=== PATIENT | male | born 1960 | race Caucasian/White ===

== ENCOUNTER 2017-01-17 09:29 | Outpatient (CLI) | payer MEDICAID ==
[2017-01-17] MEDS ORDERED: VERSED ONE (09:51)
[2017-01-17 09:55] LABS: BASOPHILS # (AUTO) 0.1 X10^3/uL (0.0-0.1); BASOPHILS % (AUTO) 1.2 % (0.2-1.0); EOSINOPHILS # (AUTO) 0.9 x10^3/uL (0.0-0.2); EOSINOPHILS % (AUTO) 9.4 % (0.9-2.9); HEMATOCRIT 50.1 % (42.0-54.0); HEMOGLOBIN 16.6 g/dL (13.5-18.0); LYMPHOCYTES # (AUTO) 2.6 X10^3/uL (1.3-2.9); LYMPHOCYTES % (AUTO) 28.3 % (21.0-51.0); MEAN CORPUSCULAR HEMOGLOBIN 25.6 pg (27.0-34.0); MEAN CORPUSCULAR HGB CONC 33.2 g/dL (33.0-35.0); MEAN CORPUSCULAR VOLUME 77.3 fL (80.0-100.0); MEAN PLATELET VOLUME 8.4 fL (7.4-11.0); MONOCYTES % (AUTO) 10.7 % (0.0-13.0); NEUTROPHILS # (AUTO) 4.7 x10^3/uL (2.2-4.8); NEUTROPHILS % (AUTO) 50.4 % (42.0-75.0); PLATELET COUNT 230 X10^3/uL (150.0-450.0); RED BLOOD COUNT 6.49 X10^6/uL (4.7-6.0); RED CELL DISTRIBUTION WIDTH 18.7 % (11.6-16.5); WHITE BLOOD COUNT 9.2 X10^3/uL (3.6-10.0)
[2017-01-17 10:10] LABS: ALANINE AMINOTRANSFERASE 68 Units/L (12-78); ALBUMIN 3.4 g/dL (3.4-5.0); ALKALINE PHOSPHATASE 64 Units/L (46-116); ASPARTATE AMINO TRANSFERASE 39 Units/L (15-37); BLOOD UREA NITROGEN 12 mg/dL (7-18); CARBON DIOXIDE 29.9 mmol/L (21-32); CHLORIDE 107 mmol/L (98-107); CREATININE 1.28 mg/dL (0.70-1.30); GLUCOSE 86 mg/dL (65-99); SODIUM 139 mmol/L (136-145); TOTAL PROTEIN 7.5 g/dL (6.4-8.2); eGFR BLACK RACES > 60 (>60); eGFR NON BLACK RACES > 60 (>60)
[2017-01-17 10:11] LABS: PLATELET MORPHOLOGY COMMENT NORMAL (NORMAL)
[2017-01-17] MEDS ORDERED: XYLOCAINE 1 % (PLAIN) ONE (10:27)
[2017-01-17] MEDS ORDERED: NS 500 ML IV 500 ML IV ONE (10:28)
[2017-01-17] MEDS ORDERED: FENTANYL INJ 250 mcg ONE (11:07)
[2017-01-17 12:07] VITALS: BMI 32.3
--- NOTE | 2017-01-17 15:15 | CT ---
HISTORY: Chronic hepatitis-C Study: CT-guided random liver biopsy Comparison: February 05, 2014 Procedure: The risk, benefits, and alternatives were discussed. Informed consent was obtained. Time out was performed. CT guidance was utilized to localize the optimal percutaneous biopsy site along t he inferior lateral segment left hepatic lobe. The patient was prepped, draped, and anesthetized in the usual sterile fashion. Conscious sedation was provided per anesthesia. A 20 gauge Bard coaxial s ystem was advanced into the left hepatic lobe, and 4 core samples were obtained. The patient tolerat ed the procedure well without immediate postprocedure complication and was monitored for approximate ly 2 hr with serial vital checks prior to discharge. IMPRESSION: Technically successful CT-guided random liver biopsy. Reported By:
--- NOTE | 2017-01-17 15:21 | US ---
HISTORY: Chronic hepatitis-C Study: Hepatic ultrasound Comparison: CT performed the same day and February 05, 2014 Technique: Multiple grayscale and color Doppler images of the right upper quadrant were obtained. Findings: The liver demonstrates normal echotexture and size without a space-occupying lesion identified. No f ree fluid is identified. The visualized portions of the pancreas and IVC are normal. The gallbladder demonstrates good through transmission without echogenic shadowing stones or sludge. There is borde rline gallbladder wall thickening which is a nonspecific finding and could be related to the patient 's known hepatitis-C. In the setting of acute right upper quadrant pain, a nuclear medicine HIDA sca n could be performed. The right kidney demonstrates normal renal cortical thickness and echogenicity and is normal in size measuring 9.4 cm in greatest sagittal dimension without mass, hydronephrosis, or nephrolithiasis. IMPRESSION: Borderline nonspecific gallbladder wall thickening and otherwise unremarkable exam. Reported By:
[2017-01-17 16:07] VITALS: BP 137/63
== END 2017-01-17 16:05 | disposition home or self-care (01) | DRG 443 ==
LOC: RAD 09:29
PROVIDERS: ATTEND Internal Medicine Gastroenterology
PROC: 0FB23ZX Excision of Left Lobe Liver, Percutaneous Approach, Diagnostic (ICD-10-PCS; principal; 2017-01-17)
DX: B18.2 Chronic viral hepatitis C (principal)
CPT/HCPCS: 36415; 76705; 77012; 80053; 85025; 85610; 85730; A4222; J2001; J2250; J3010

== ENCOUNTER 2017-01-25 10:31 | Day surgery (SDC) | payer MEDICAID ==
[2017-01-25] MEDS ORDERED: NS 1000 ML 1,000 ML ONE (10:35)
[2017-01-25] MEDS ORDERED: DIPRIVAN VIAL 20 ML ONE ×2 (11:09→11:21)
[2017-01-25 14:46] VITALS: BP 117/79
== END 2017-01-25 12:00 | disposition home or self-care (01) ==
LOC: SURG1 10:31
PROVIDERS: ATTEND Internal Medicine Gastroenterology
PROC: 0DBM8ZX Excision of Descending Colon, Via Natural or Artificial Opening Endoscopic, Diagnostic (ICD-10-PCS; principal; 2017-01-25 12:00)
PROC: 0DBL8ZX Excision of Transverse Colon, Via Natural or Artificial Opening Endoscopic, Diagnostic (ICD-10-PCS; principal; 2017-01-25 12:00)
PROC: 0DBN8ZX Excision of Sigmoid Colon, Via Natural or Artificial Opening Endoscopic, Diagnostic (ICD-10-PCS; principal; 2017-01-25 12:00)
PROC: 0DJD8ZZ Inspection of Lower Intestinal Tract, Via Natural or Artificial Opening Endoscopic (ICD-10-PCS; principal; 2017-01-25 12:00)
DX: Z12.11 Encounter for screening for malignant neoplasm of colon (principal); D50.8 Other iron deficiency anemias; Z80.0 Family history of malignant neoplasm of digestive organs; R63.4 Abnormal weight loss; K63.5 Polyp of colon; K64.0 First degree hemorrhoids; R11.2 Nausea with vomiting, unspecified; R10.84 Generalized abdominal pain; D12.6 Benign neoplasm of colon, unspecified
CPT/HCPCS: A4217; J3490

== ENCOUNTER → 2017-03-06 | Outpatient (CLI) | payer MEDICAID ==
[2017-03-12 07:27] LABS: HCV VIRAL LOG 6.8 log IU
== END ==
LOC: LAB 14:07
PROVIDERS: ATTEND Internal Medicine Gastroenterology
DX: B18.2 Chronic viral hepatitis C (principal)
CPT/HCPCS: 36415; 87522

== ENCOUNTER → 2017-05-31 | Outpatient (CLI) | payer MEDICAID ==
[2017-05-31 09:12] LABS: BASOPHILS # (AUTO) 0.1 X10^3/uL (0.0-0.1); BASOPHILS % (AUTO) 0.9 % (0.2-1.0); EOSINOPHILS # (AUTO) 1.1 x10^3/uL (0.0-0.2); EOSINOPHILS % (AUTO) 9.9 % (0.9-2.9); HEMATOCRIT 49.9 % (42.0-54.0); LYMPHOCYTES # (AUTO) 3.9 X10^3/uL (1.3-2.9); LYMPHOCYTES % (AUTO) 36.7 % (21.0-51.0); MEAN CORPUSCULAR HEMOGLOBIN 27.9 pg (27.0-34.0); MEAN CORPUSCULAR HGB CONC 34.2 g/dL (33.0-35.0); MEAN CORPUSCULAR VOLUME 81.7 fL (80.0-100.0); MEAN PLATELET VOLUME 8.3 fL (7.4-11.0); MONOCYTES # (AUTO) 1.1 x10^3/uL (0.3-0.8); NEUTROPHILS # (AUTO) 4.5 x10^3/uL (2.2-4.8); NEUTROPHILS % (AUTO) 42.5 % (42.0-75.0); PLATELET COUNT 244 X10^3/uL (150.0-450.0); RED CELL DISTRIBUTION WIDTH 15.7 % (11.6-16.5); WHITE BLOOD COUNT 10.7 X10^3/uL (3.6-10.0)
[2017-05-31 09:23] LABS: ALBUMIN 3.4 g/dL (3.4-5.0); BILIRUBIN,DIRECT 0.06 mg/dL (0-0.2); TOTAL PROTEIN 7.6 g/dL (6.4-8.2)
== END | disposition home or self-care (01) ==
LOC: LAB 08:44
PROVIDERS: ATTEND Internal Medicine Gastroenterology
DX: B18.2 Chronic viral hepatitis C (principal)
CPT/HCPCS: 36415; 80076; 85025

== ENCOUNTER → 2017-06-14 | Outpatient (CLI) | payer MEDICAID ==
[2017-06-14 12:26] LABS: BASOPHILS # (AUTO) 0.1 X10^3/uL (0.0-0.1); BASOPHILS % (AUTO) 1.1 % (0.2-1.0); EOSINOPHILS # (AUTO) 0.7 x10^3/uL (0.0-0.2); EOSINOPHILS % (AUTO) 7.9 % (0.9-2.9); HEMATOCRIT 49.2 % (42.0-54.0); HEMOGLOBIN 16.4 g/dL (13.5-18.0); LYMPHOCYTES % (AUTO) 32.7 % (21.0-51.0); MEAN CORPUSCULAR HEMOGLOBIN 27.7 pg (27.0-34.0); MEAN CORPUSCULAR HGB CONC 33.3 g/dL (33.0-35.0); MEAN CORPUSCULAR VOLUME 83.3 fL (80.0-100.0); MEAN PLATELET VOLUME 8.2 fL (7.4-11.0); MONOCYTES # (AUTO) 0.8 x10^3/uL (0.3-0.8); MONOCYTES % (AUTO) 8.4 % (0.0-13.0); NEUTROPHILS # (AUTO) 4.7 x10^3/uL (2.2-4.8); NEUTROPHILS % (AUTO) 49.9 % (42.0-75.0); PLATELET COUNT 231 X10^3/uL (150.0-450.0); RED BLOOD COUNT 5.91 X10^6/uL (4.7-6.0); RED CELL DISTRIBUTION WIDTH 16.4 % (11.6-16.5); WHITE BLOOD COUNT 9.3 X10^3/uL (3.6-10.0)
[2017-06-14 12:43] LABS: ALBUMIN 3.1 g/dL (3.4-5.0); BILIRUBIN,DIRECT 0.13 mg/dL (0-0.2); TOTAL PROTEIN 7.6 g/dL (6.4-8.2)
[2017-06-18 07:07] LABS: HCV VIRAL LOG <1.2 log IU
== END ==
LOC: LAB 11:59
PROVIDERS: ATTEND Internal Medicine Gastroenterology
DX: B18.2 Chronic viral hepatitis C (principal)
CPT/HCPCS: 36415; 80076; 85025; 87522

== ENCOUNTER → 2017-07-12 | Outpatient (CLI) | payer MEDICAID ==
[2017-07-12 13:38] LABS: BASOPHILS # (AUTO) 0.1 X10^3/uL (0.0-0.1); BASOPHILS % (AUTO) 1.1 % (0.2-1.0); EOSINOPHILS % (AUTO) 10.3 % (0.9-2.9); HEMOGLOBIN 16.4 g/dL (13.5-18.0); LYMPHOCYTES # (AUTO) 3.2 X10^3/uL (1.3-2.9); LYMPHOCYTES % (AUTO) 33.6 % (21.0-51.0); MEAN CORPUSCULAR HEMOGLOBIN 27.1 pg (27.0-34.0); MEAN CORPUSCULAR HGB CONC 33.6 g/dL (33.0-35.0); MEAN CORPUSCULAR VOLUME 80.8 fL (80.0-100.0); MEAN PLATELET VOLUME 8.7 fL (7.4-11.0); MONOCYTES # (AUTO) 0.9 x10^3/uL (0.3-0.8); MONOCYTES % (AUTO) 9.1 % (0.0-13.0); NEUTROPHILS # (AUTO) 4.4 x10^3/uL (2.2-4.8); NEUTROPHILS % (AUTO) 45.9 % (42.0-75.0); PLATELET COUNT 233 X10^3/uL (150.0-450.0); RED BLOOD COUNT 6.06 X10^6/uL (4.7-6.0); RED CELL DISTRIBUTION WIDTH 17.4 % (11.6-16.5); WHITE BLOOD COUNT 9.5 X10^3/uL (3.6-10.0)
[2017-07-12 13:47] LABS: ALBUMIN 3.4 g/dL (3.4-5.0); BILIRUBIN,DIRECT 0.13 mg/dL (0-0.2); TOTAL PROTEIN 6.8 g/dL (6.4-8.2)
== END ==
LOC: LAB 13:11
PROVIDERS: ATTEND Internal Medicine Gastroenterology
DX: B18.2 Chronic viral hepatitis C (principal)
CPT/HCPCS: 36415; 80076; 85025

== ENCOUNTER → 2017-08-10 | Outpatient (CLI) | payer MEDICAID ==
[2017-08-10 10:23] LABS: BASOPHILS % (AUTO) 0.4 % (0.2-1.0); EOSINOPHILS # (AUTO) 0.9 x10^3/uL (0.0-0.2); EOSINOPHILS % (AUTO) 7.9 % (0.9-2.9); HEMATOCRIT 52.5 % (42.0-54.0); HEMOGLOBIN 17.4 g/dL (13.5-18.0); LYMPHOCYTES # (AUTO) 3.2 X10^3/uL (1.3-2.9); MEAN CORPUSCULAR HEMOGLOBIN 26.2 pg (27.0-34.0); MEAN CORPUSCULAR VOLUME 79.3 fL (80.0-100.0); MEAN PLATELET VOLUME 8.3 fL (7.4-11.0); MONOCYTES # (AUTO) 1.1 x10^3/uL (0.3-0.8); MONOCYTES % (AUTO) 9.4 % (0.0-13.0); NEUTROPHILS # (AUTO) 6.5 x10^3/uL (2.2-4.8); NEUTROPHILS % (AUTO) 55.3 % (42.0-75.0); PLATELET COUNT 271 X10^3/uL (150.0-450.0); RED BLOOD COUNT 6.62 X10^6/uL (4.7-6.0); RED CELL DISTRIBUTION WIDTH 18.2 % (11.6-16.5); WHITE BLOOD COUNT 11.7 X10^3/uL (3.6-10.0)
[2017-08-10 10:34] LABS: ALBUMIN 3.5 g/dL (3.4-5.0); BILIRUBIN,DIRECT 0.12 mg/dL (0-0.2); TOTAL PROTEIN 7.7 g/dL (6.4-8.2)
[2017-08-14 07:19] LABS: HCV VIRAL LOG <1.2 log IU
== END | disposition home or self-care (01) ==
LOC: LAB 10:01
PROVIDERS: ATTEND Internal Medicine Gastroenterology
DX: B18.2 Chronic viral hepatitis C (principal)
CPT/HCPCS: 36415; 80076; 85025; 87522

== ENCOUNTER → 2017-11-07 | Outpatient (CLI) | payer MEDICAID ==
--- NOTE | 2017-11-07 15:44 | RAD ---
HISTORY: Status post fall 1 month prior. Study: Right knee: Three views Comparison: None Findings: Minimal spurring is noted medially. Mild spiking of the tibial spines is present. There is suggesti on of possible tiny avulsion from the anterior tibial spine. This could be acute or chronic. Furthe r evaluation with MRI may be of assistance. I see no evidence of joint effusion. IMPRESSION: 1. There is a tiny bony density adjacent to the anterior tibial spines suggesting the possibility of a tiny avulsion fracture. This could be acute or chronic. Further evaluation with MRI may be of as sistance. 2. Otherwise, minimal degenerative changes noted. Reported By:
== END ==
LOC: RAD 13:21
PROVIDERS: ATTEND Obstetrics & Gynecology Obstetrics
DX: M25.561 Pain in right knee (principal); R93.7 Abnormal findings on diagnostic imaging of other parts of musculoskeletal system
CPT/HCPCS: 73560

== ENCOUNTER → 2017-12-25 | Outpatient (CLI) | payer MEDICAID ==
--- NOTE | 2017-12-25 17:02 | MRI ---
Indication: Sprain of ACL right knee and increasing right knee pain Exam: MRI right knee without contrast. Technique: Routine multiplanar multisequence imaging was performed through the right knee without con trast. Findings: The anterior cruciate ligament is normal. There is moderate heterogeneous abnormal signal a nd irregularity throughout the mid and distal posterior cruciate ligament which may be slightly retra cted distally but is not well delineated. There is diffuse moderate thinning of the articular cartila ge medially . There is mild linear signal along the middle 2/3 of the medial meniscus which extends p osteriorly and inferiorly but is difficult to further delineate . There are small subchondral foci of abnormal signal along the femoral condyles posteriorly . There are subchondral cystic changes along the medial tibial plateau extending to the tibial spine with some mild adjacent edema in the area . T here are subchondral cystic changes along the lateral femoral condyles anteriorly, adjacent to the pa tellofemoral joint. There is abnormal linear signal throughout the lateral meniscus which does not de finitely extend to the surface. There is a small joint effusion . There is prominent asymmetry of the femoral notch with moderate lateral tilting of the patella and diffuse moderate thinning of the fraire llar cartilage which is more severe laterally and extending along the apex. The surrounding retinacul ar fibers are intact. There is an elongated fluid collection in the popliteal fossa posterior mediall y measuring 6 cm. The collateral ligaments are normal. Impression: High-grade partial tear the posterior cruciate ligament. 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 Small foci of chronic osteonecrosis along the femoral condyles which is more prominent medially with no acute bony abnormality. Moderate chondromalacia patella with subchondral cystic changes in the adjacent femoral condyles late rally versus a small focus of osteonecrosis. Extensive subchondral cysts or geodes along the medial tibial spine with some mild reactive edema ext ending into the adjacent bone marrow . Moderate meniscoid degenerative change throughout the lateral meniscus with no definite tear. Reported By:
== END | disposition home or self-care (01) | DRG 950 ==
LOC: RAD 13:48
PROVIDERS: ATTEND Orthopaedic Surgery
DX: S83.511D Sprain of anterior cruciate ligament of right knee, subsequent encounter (principal); X58.XXXD Exposure to other specified factors, subsequent encounter; M17.11 Unilateral primary osteoarthritis, right knee; M22.41 Chondromalacia patellae, right knee
CPT/HCPCS: 73721